=== PATIENT | female | born 1990 | race African-American/Black ===

== ENCOUNTER 2018-10-28 20:48 | Inpatient (IN) | payer OTHER, MEDICAID ==
[~2018-10-28] VITALS: Ht 160 cm; Wt 64.0 kg
[2018-10-28 21:25] LABS: ABSOLUTE EOSINOPHILS 0.1 thou/uL (0.0-0.7); ABSOLUTE LYMPHOCYTES 1.7 thou/uL (0.8-5.3); ABSOLUTE MONOCYTES 0.5 thou/uL (0.0-1.2); ABSOLUTE NEUTROPHILS 5.2 thou/uL (1.6-8.1); BASOPHILS 0.6 %; EOSINOPHILS 1.1 %; HEMATOCRIT 35.1 % (37.0-47.0); HEMOGLOBIN 11.2 gm/dL (12.0-15.0); LYMPHOCYTES 22.4 %; MCH 26.5 pg (26.0-34.0); MCHC 31.8 g/dL (28.0-37.0); MCV 83.2 fL (80.0-100.0); MPV 8.2 fl. (7.2-11.1); NUCLEATED RBCS 0 /100WBC; PLATELET COUNT* 348 thou/uL (150-400); POLYS 68.9 %; RBC 4.22 mil/uL (4.20-5.00); WBC 7.5 thou/uL (4.0-11.0)
[2018-10-28 21:33] LABS: ANION GAP 9 mmol/L (7-16); BUN 13 mg/dL (7-18); CALCIUM 8.4 mg/dL (8.5-10.1); CHLORIDE 101 mmol/L (98-107); CO2 26 mmol/L (21-32); CREATININE 0.7 mg/dL (0.6-1.3); GLUCOSE 118 mg/dL (70-99); POTASSIUM 4.2 mmol/L (3.5-5.1); SODIUM 136 mmol/L (136-145)
[2018-10-28 21:43] LABS: ALBUMIN 3.8 g/dL (3.4-5.0); ALKALINE PHOSPHATASE 90 U/L (46-116); SGOT 16 U/L (15-37); SGPT 24 U/L (30-65); TOTAL BILIRUBIN 0.2 mg/dL (<0.1-1.0); TOTAL PROTEIN 8.4 g/dL (6.4-8.2); TROPONIN-I LEVEL <0.06 ng/mL (<0.06)
[2018-10-29 02:12] VITALS: BP 111/62
[2018-10-29 02:30] VITALS: BP 94/53
[2018-10-29 08:09] VITALS: BP 93/53
--- NOTE | 2018-10-29 12:32 | NUR ---
ATTEMPTED TO SEE PT WAS OFF UNIT
[2018-10-29 15:48] VITALS: BP 95/56
--- NOTE | 2018-10-29 16:44 | 2DMMODE ---
[place] [address] 2 D/M-MODE ECHOCARDIOGRAM Name: BURKE NAJERA Room: [place] [address] ADM IN [facility]#: [id number] Admission: 10/29/18 Attend Phys: Dorothy Lowery MD Discharge: Date of : 88 Date of Service: 10/29/18 1643 Report #: [id number] THIS REPORT FOR: //name// APPROVED REPORT Study performed: 10/29/2018 15:28:14 EXAM: Comprehensive 2D, Doppler, and color-flow Echocardiogram Patient Location: In-Patient Room #: [facility] Status: routine BSA: 1.67 HR: 87 bpm BP: 93/53 mmHg Rhythm: NSR Other Information Study Quality: Good Indications CVA/TIA Echo Enhancing Agent Indication: Rule out Shunt Agent(s) / Amount(s) Used: Agitated Saline 10 cc 2D Dimensions IVSd: 9.19 (7-11mm) LVOT Diam: 19.34 (18-24mm) LVDd: 41.06 mm PWd: 8.53 (7-11mm) Ascending Ao: 24.79 (22-36mm) LVDs: 30.99 (25-40mm) Aortic Root: 23.47 mm M-Mode Dimensions IVSd: 5.00 (7-11mm) LVDd: 50.00 (40-56mm) PWd: 9.00 (7-11mm) IVSs: 16.00 mm FS(%): 44.67 % LVDs: 27.67 (20-38mm) PWs: 13.33 mm LVEF(%): 75.73 (>50%) Volumes Left Atrial Volume (Systole) LA ESV Index: 20.10 mL/m2 [place] [address] 2 D/M-MODE ECHOCARDIOGRAM Name: BURKE NAJERA Room: [place] [address] ADM IN .R.#: [id number] Admission: 10/29/18 Attend Phys: Dorothy Lowery MD Discharge: Date of : 88 Date of Service: 10/29/18 1643 Report #: [id number] Aortic Valve AoV Peak Arian.: 1.36 m/s AO Peak Gr.: 7.36 mmHg LVOT Max P.12 mmHg AO Mean Gr.: 4.15 mmHg LVOT Mean P.03 mmHg LVOT Max V: 1.01 m/s AO V2 VTI: 24.52 cm LVOT Mean V: 0.65 m/s ANNAMARIE (VTI): 2.28 cm2 LVOT V1 VTI: 19.02 cm Mitral Valve E/A Ratio: 1.69 MV Decel. Time: 169.90 ms MV E Max Arian.: 0.93 m/s MV PHT: 49.27 ms MVA (PHT): 4.47 cm2 TDI E/Lateral E': 5.17 E/Medial E': 6.64 Medial E' Arian.: 0.14 m/s Lateral E' Arian.: 0.18 m/s Pulmonary Valve PV Peak Arian.: 0.87 m/s PV Peak Gr.: 3.05 mmHg Tricuspid Valve RAP Estimate: 5.00 mmHg TR Peak Gr.: 17.68 mmHg RVSP: 22.00 mmHg PA Pressure: 22.00 mmHg Left Ventricle The left ventricle is normal size. There is normal LV segmental wall motion. There is normal left ventricular wall thickness. Left ventricular systolic function is normal. The left ventricular ejection fraction is within the normal range. LVEF is 60%. The left ventricular diastolic function is normal. Right Ventricle The right ventricle is normal size. The right ventricular systolic function is normal. Atria The left atrium size is normal. The right atrium size is normal. Aortic Valve The aortic valve is normal in structure. [place] [address] 2 D/M-MODE ECHOCARDIOGRAM Name: BURKE NAJERA Room: [place] [address] ADM IN M.R.#: [id number] Admission: 10/29/18 Attend Phys: Dorothy Lowery MD Discharge: Date of : 88 Date of Service: 10/29/18 1643 Report #: [id number] present. There is no aortic valvular stenosis. Mitral Valve The mitral valve is normal in structure. Trace mitral regurgitation. No evidence of mitral valve stenosis. Tricuspid Valve The tricuspid valve is normal in structure. Trace tricuspid regurgitation. No pulmonary hypertension. Pulmonic Valve The pulmonary valve is normal in structure. There is no pulmonic valvular regurgitation. Great Vessels The aortic root is normal in size. IVC is normal in size and collapses >50% with inspiration. Pericardium There is no pericardial effusion. <Conclusion> The left ventricle is normal size. There is normal left ventricular wall thickness. Left ventricular systolic function is normal. The left ventricular ejection fraction is within the normal range. LVEF is 60%. The left ventricular diastolic function is normal. The right ventricle is normal size. The left atrium size is normal. The aortic valve is normal in structure. The mitral valve is normal in structure. Trace mitral regurgitation. The tricuspid valve is normal in structure. IVC is normal in size and collapses >50% with inspiration. There is no pericardial effusion. There is normal LV segmental wall motion. <ELECTRONICALLY SIGNED> By: Cliff Kingston MD, FACC 10/29/18 164 42 42 Cliff Kingston MD, FACC /INF
--- NOTE | 2018-10-29 16:54 | NUR ---
ASSUMED CARE OF PT AROUND 0730 THIS AM. REFER TO ASSESSMENT. PT HAVING MULTIPLE DIAGNOSTIC TESTS PER NEUROLOGY. PT COMPLETED MRI AND ECHO TODAY. REFER TO RESULTS. ANTICIPATE EEG TOMORROW. PT REPORTS PHYSICIAN DISCUSSED A POSSIBLE SPINAL TAP. PT STATES SHE IS TOO SCARED/ANXIOUS TO COMPLETE THAT TEST. ENCOURAGED TO DISCUSS WITH PHYSICIAN ABOUT OBTAINING ANXIOLYTIC PRIOR TO TESTING. NO OTHER CONCERNS AT THIS TIME. CLWR. WCTM.
--- NOTE | 2018-10-29 18:02 | EKG ---
[place] [address] ELECTROCARDIOGRAM REPORT Name: BURKE NAJERA Room: [place] [address] ADM IN ..#: [id number] Admission: 10/29/18 Attend Phys: Dorothy Lowery MD Discharge: Date of : 88 Report #: [id number] THIS REPORT FOR: //name// [facility] ED Test Date: 2018-10-28 Test Time: 21:21:49 Pat Name: BURKE NAJERA Department: Room: [facility] Gender: F [employer] Instrument Repairer: ELIN : 1990 Requested By: Ulises Henriquez Order Number: [id number] MD: Shai Riggins Measurements Intervals Maxie Rate: 89 P: 45 NH: 129 QRS: 42 QRSD: 75 T: 54 QT: 364 QTc: 443 Interpretive Statements Sinus rhythm No previous ECG available for comparison Electronically Signed On 10-29-2018 18:02:31 CDT by Shai Riggins [email or web address] <ELECTRONICALLY SIGNED> By: Char Riggins MD, [facility] 10/29/181801 20 20 Char Riggins MD, FACC /EPI
[2018-10-29 20:11] VITALS: BP 103/64
[2018-10-30] VITALS: BP 108/68
[2018-10-30 02:06] LABS: GLYCOHEMOGLOBIN (HGB A1C) 5.2 % (4.8-5.6)
[2018-10-30 04:00] VITALS: BP 102/61
[2018-10-30 05:18] LABS: CHOLESTEROL 171 mg/dL (<200); HDL CHOLESTEROL 68 mg/dL (>40); LDL CHOLESTEROL 94 mg/dL (<100); TC:HDL 2.5 Ratio (Not establshd); TRIGLYCERIDE 47 mg/dL (<150); VLDL 9 mg/dL (<40)
[2018-10-30 05:21] LABS: SERUM ASSESSMENT Clear
--- NOTE | 2018-10-30 05:34 | NUR ---
PT IS ABLE TO COMMUNICATE HER NEEDS TO STAFF EFFECTIVELY. SHE HAS DENIED THE NEED FOR PAIN MEDICATION UP TO THIS TIME. SHE WOULD LIKE TO SPEAK TO THE NEUROLOGIST BEFORE SHE IS DISCHARGED, WHICH COULD POSSIBLY OCCUR TODAY.
[2018-10-30 07:00] VITALS: BP 107/63
--- NOTE | 2018-10-30 09:30 | NUR ---
COMPLETED ASSESSMENT CHARTED, VSS, SR ON MONITOR, NIH SCORE IS 0. PATIENT EXPRESSES DESIRE TO BE DISCHARGED. CLWR, HOURLY ROUNDING IN PLACE FOR PATIENT SAFETY.
[2018-10-30 12:40] VITALS: BP 117/68
[2018-10-30 15:31] VITALS: BP 104/61
--- NOTE | 2018-10-30 18:41 | NUR ---
PATIENT PROGRESSING TOWARDS GOALS. VSS. NIH SCORE REMAINS 0. HOURLY ROUNDING IN PLACE FOR PATIENT SAFETY. SR ON MONITOR. CLWR.
[2018-10-30 19:50] VITALS: BP 115/59
[2018-10-31] VITALS: BP 97/54
[2018-10-31 04:00] VITALS: BP 107/56
[2018-10-31 07:15] VITALS: BP 105/64
[2018-10-31] MEDS ORDERED: GABAPENTIN 100100 MG PO (08:41)
[2018-10-31] MEDS ORDERED: BUSPIRONE HCL5 MG PO (08:41)
[2018-10-31] MEDS ORDERED: ZOLOFT50 MG PO (08:41)
--- NOTE | 2018-10-31 09:07 | NUR ---
ASSESSMENT COMPLETED CHARTED. VSS. NIH SCORE REMAINS 0. HOURLY ROUNDING IN PLACE FOR PATIENT SAFETY. CLWR. PATIENT EXPRESSES DESIRE TO BE DISCHARGED.
[2018-10-31 10:30] VITALS: BP 105/64
--- NOTE | 2018-10-31 17:09 | EEG ---
[address] [address] EEG STUDY REPORT Name: BURKE NAJERA Room: [address] IN M.R.#: [id number] Admission: 10/29/18 Attend Phys: Dorothy Lowery MD Discharge: 10/31/18 Date of : 88 Report #: [id number] THIS REPORT FOR: //name// CC: FAM physician/PCP Dorothy Lowery DATE OF SERVICE: 10/29/2018 INDICATIONS: This patient has been admitted with question of numbness and seizure. FINDINGS: The patient's EEG was done by placing the electrode by standard 10-20 system of electrode placement. Both referential and sequential montages were used for recording. Background activity in this patient's EEG is about 11 Hz and 40 microvolt. The patient repeatedly went to sleep that is associated with bilaterally symmetrical sleep spindle, vertex sharp waves, and hypnagogic hypersynchrony. Photic stimulation is unremarkable. No definite epileptiform activity was noticed. IMPRESSION: This patient's EEG does not demonstrate any clear-cut electrophysiological abnormality. <ELECTRONICALLY SIGNED> By: Landon Heart MD 10/31/18 1709 1610 1928Landon Heart MD /nt
--- NOTE | 2018-10-31 17:09 | CON ---
[address] [address] CONSULTATION Name: BURKE NAJERA Room: [address] IN M.R.#: [id number] Admission: 10/29/18 Attend Phys: Dorothy Lowery MD Discharge: 10/31/18 Date of : 88 Report #: [id number] THIS REPORT FOR: //name// CC: CHERRY physician/PCP Dorothy Lowery DATE OF SERVICE: 10/29/2018 HISTORY OF PRESENT ILLNESS: This is a 27-year-old female patient who was seen by me today because she is having numbness on the left side. This started a few days ago. Emergency Room physician talked to me and I had recommended CT angiogram of the head and neck if is excluded. They did CT angiogram of the head and neck that was unremarkable. It does not look like the lesion is enhancing on that. She has an unusual history that she had multiple members in the family who had stroke at younger age. She is from [place]. I am not sure how accurate the diagnosis was. She used to have seizures. She took the medication until she was 10 and then she stopped taking it. The seizure did include passing out and I am not sure what kind of seizures they were. REVIEW OF SYSTEMS: Indicates she has an 8-month-old daughter. She said she is not on any contraception, but she has her periods recently. Her test is negative. Rest of the 14-point review of system appear noncontributory. PAST MEDICAL HISTORY: Positive for seizures as described above. FAMILY HISTORY: Positive for some early age stroke, but I am not sure the diagnosis was correct. At least I do not have any documentation. She does use alcohol, but only on special occasions. PHYSICAL EXAMINATION: Indicate she is alert, responsive, able to follow simple and complex command. Cranial nerve examination 2-12 looks unremarkable. Sensations objectively are symmetrical. There is no cerebellar sign. I could not look at the fundus. Cardiac examinations appear noncontributory. No respiratory difficulty or rhonchi was noticed. Blood pressure is 93/53, temperature is 98.4, pulse rate is 96. White count is normal at 7.5. IMPRESSION: This is a pretty unusual patient who needs further workup. Firstly, I think we need to exclude the possibility of multiple sclerosis. If that is excluded, we should exclude other pathologies in frontal area, which is causing the finding on CT and may have been the cause of the seizures. I discussed her options in that regard. I thought the first thing we need to do is MRI of the brain and spine to make sure there is no MS. If there is no MS, then we need to decide about further management, [place] [address] CONSULTATION Name: BURKE NAJERA Room: [address] IN .R.#: [id number] Admission: 10/29/18 Attend Phys: Dorothy Lowery MD Discharge: 10/31/18 Date of : 88 Report #: [id number] with spinal tap or not. I discussed with her the procedure. I discussed with her its potential complication, especially of the contrast. Her kidney function is normal. Her test is negative. I discussed with her that that does not fully exclude the possibility of . She understands that. She wants to proceed with MRI of the brain and C-spine with and without contrast and further management will depend upon that. I am not prevocational/rehabilitation counselor starting tomorrow and somebody else will follow up this patient. A total of about 50 minutes of time was spent taking care of this patient today and majority of the time was counseling and coordinating her care. <ELECTRONICALLY SIGNED> By: Landon Heart MD 10/31/18 1709 0834 [id number] Heart MD /nt
== END 2018-10-31 11:10 | disposition home or self-care (01) | DRG 93 ==
LOC: M.ERS 20:48 → M.2W 10-29 01:12 → M.TBA-ER 10-29 01:12 → M.2W 10-29 01:33
PROVIDERS: Emergency Medicine Emergency Medical Services; ADMIT Family Medicine
DX: R20.0 Anesthesia of skin (principal); F41.9 Anxiety disorder, unspecified; R51 Headache; F32.9 Major depressive disorder, single episode, unspecified; Z79.899 Other long term (current) drug therapy; Z88.8 Allergy status to other drugs, medicaments and biological substances; Z82.0 Family history of epilepsy and other diseases of the nervous system; Z82.3 Family history of stroke; Z87.820 Personal history of traumatic brain injury

== ENCOUNTER 2020-01-04 15:23 | Emergency (ER) | payer OTHER, MEDICAID ==
[~2020-01-04] VITALS: Ht 157.5 cm; Wt 58.1 kg
[~2020-01-04 15:23] MED LIST: BUSPIRONE HCL5 MG PO; GABAPENTIN 100100 MG PO; ZOLOFT50 MG PO
[2020-01-04 15:34] VITALS: BP 120/84
[2020-01-04] MEDS ORDERED: ONDANSETRON HCL4 M2 PO (16:14)
== END 2020-01-04 16:21 | disposition home or self-care (01) ==
LOC: M.ERS 15:23
DX: U07.1 COVID-19 (principal); Z91.018 Allergy to other foods

== ENCOUNTER 2020-01-14 12:19 | Emergency (ER) | payer OTHER, MEDICAID ==
[~2020-01-14] VITALS: Ht 157.5 cm; Wt 58.1 kg
[~2020-01-14 12:19] MED LIST changes: +ONDANSETRON HCL4 M2 PO
[2020-01-14 12:46] VITALS: BP 117/82
== END 2020-01-14 14:25 | disposition home or self-care (01) ==
LOC: M.ERS 12:19
DX: R51.9 Headache, unspecified (principal); Z20.828 Contact with and (suspected) exposure to other viral communicable diseases; Z91.018 Allergy to other foods

== ENCOUNTER 2020-02-26 16:35 | Emergency (ER) | payer OTHER, MEDICAID ==
[~2020-02-26] VITALS: Ht 162.6 cm; Wt 68.0 kg
[2020-02-26 17:38] VITALS: BP 112/70
== END 2020-02-26 17:39 | disposition home or self-care (01) ==
LOC: M.ERS 16:35
DX: R09.81 Nasal congestion (principal); Z20.828 Contact with and (suspected) exposure to other viral communicable diseases; Z91.013 Allergy to seafood

== ENCOUNTER 2020-12-27 11:18 | Emergency (ER) | payer OTHER, MEDICAID ==
[~2020-12-27] VITALS: Ht 157.5 cm; Wt 64.9 kg
[2020-12-27 11:49] LABS: URINE BILIRUBIN NEGATIVE (Negative); URINE BLOOD NEGATIVE (Negative); URINE CLARITY CLEAR; URINE COLOR YELLOW; URINE GLUCOSE-RANDOM NEGATIVE (Negative); URINE KETONES TRACE (Negative); URINE LEUKOCYTES 1+ (Negative); URINE NITRITE NEGATIVE (Negative); URINE PROTEIN TRACE (Negative)
[2020-12-27 11:50] LABS: ABSOLUTE MONOCYTES 0.5 thou/uL (0.0-1.2); ABSOLUTE NEUTROPHILS 3.1 thou/uL (1.6-8.1); BASOPHILS 0.4 %; EOSINOPHILS 0.7 %; HEMATOCRIT 39.6 % (37.0-47.0); HEMOGLOBIN 13.6 gm/dL (12.0-15.0); LYMPHOCYTES 21.3 %; MCH 31.7 pg (26.0-34.0); MCHC 34.3 g/dL (28.0-37.0); MCV 92.6 fL (80.0-100.0); MONOCYTES 10.4 %; MPV 8.7 fl. (7.2-11.1); NUCLEATED RBCS 0 /100WBC; PLATELET COUNT* 288 thou/uL (150-400); POLYS 67.2 %; RBC 4.28 mil/uL (4.20-5.00); RDW-CV 13.2 % (10.5-14.5); WBC 4.7 thou/uL (4.0-11.0)
[2020-12-27 11:57] LABS: BACTERIA None Seen /HPF (None Seen); SQUAMOUS 0-3 Few /LPF (0-3); URINE RBC 0-2 Rare /HPF (0-2); URINE WBC 6-15 Few /HPF (0-5)
[2020-12-27 11:58] LABS: CASTS None Seen /LPF (None Seen); CRYSTALS None Seen /LPF (None Seen)
[2020-12-27 12:02] LABS: CALCIUM 8.7 mg/dL (8.5-10.1); CREATININE 0.7 mg/dL (0.6-1.3); POTASSIUM 3.8 mmol/L (3.5-5.1)
[2020-12-27 12:07] LABS: TOTAL BILIRUBIN 0.5 mg/dL (<0.1-1.0); TOTAL PROTEIN 8.8 g/dL (6.4-8.2)
[2020-12-27] MEDS ORDERED: CEPHALEXIN500 MG PO (13:05)
[2020-12-27 13:24] VITALS: BP 122/72
== END 2020-12-27 13:25 | disposition home or self-care (01) ==
LOC: M.ERS 11:18
PROVIDERS: Physician Assistant
DX: N39.0 Urinary tract infection, site not specified (principal); R10.84 Generalized abdominal pain; Z91.02 Food additives allergy status